=== PATIENT | male | born 1960 | race Caucasian/White ===

== ENCOUNTER 2018-07-16 04:54 | Inpatient (IN) | payer OTHER, SELFPAY ==
[2018-07-16] VITALS (40 sets, daily range): BP systolic 112–196; BP diastolic 48–117; PULSE 56–79; RESP 12–22; TEMP 36.4–36.9; O2SAT 96–100; BMI 33.1; BMI 32.5
--- NOTE | 2018-07-16 05:08 | EKG12_ITS ---
Test Reason : CP Blood Pressure : / mmHG Vent. Rate : 074 BPM Atrial Rate : 074 BPM P-R Int : 126 ms QRS Dur : 088 ms QT Int : 386 ms P-R-T Axes : 023 052 058 degrees QTc Int : 428 ms Normal sinus rhythm Normal ECG Confirmed by NATALYA URIOSTEGUI, MARIA T ([id number]), staff editor EJ NELSON ([id number]) on 07/20/2018 10:55:41 AM Referred By: Vasiliy Anton Confirmed By:MARIA T HOANG MD
--- NOTE | 2018-07-16 05:08 | RAD_ITS ---
STUDY: X-RAY CHEST REASON FOR EXAM: Male, 58 years old. Chest pain TECHNIQUE: 1 view COMPARISON: None. FINDINGS: The lungs are clear and expanded. There is no demonstrated pleural abnormality. Normal size heart. Normal mediastinum and vazquez. Normal visualized pulmonary arteries. Normal visualized aortic arch and descending thoracic aorta. Normal visualized thoracic spine. Normal visualized ribs, clavicles, and shoulders. There is no demonstrated abnormality of the visualized soft tissue structures of the upper abdomen. RAD/Chest 1 View (Portable) IMPRESSION: Normal x-ray examination of the chest. No acute findings in the lungs Electronically Signed: Parveen Escobar MD at 5:27 EDT Tel , Service support ,
[2018-07-16 05:17] LABS: Absolute Lymphocyte Count 3.09 X10^3/ul (0.83-4.51); Absolute Neutrophil Count 6.1 X10^3/uL (2.0-7.7); Basophil# 0.04 X10^3/uL; Basophil% 0.4 % (0-1); Hematocrit 43.8 % (40-54); Hemoglobin 15.3 g/dl (13.0-16.5); Lymphocyte # 3.09 X10^3/ul (4.0); Lymphocyte % 30.3 % (19-41); Mean Corp Hgb Conc 34.9 g/gl (32-36); Mean Corpuscular Hgb 30.5 pg (27.0-32.0); Mean Corpuscular Volume 87.3 fL (80-94); Mean Platelet Vol. 10.4 fl (6.2-12.0); Monocyte# 0.84 X10^3/uL; Monocyte% 8.2 % (0-10); Neutrophil # 6.12 X10^3/uL (2.7-7.7); Neutrophil % 59.9 % (47-70); Platelet Count 243 K/mm3 (150-450); RBC Distribution Width CV 14.3 % (11.6-14.6); RBC Distribution Width SD 45.1 fl (35.1-43.9); Red Blood Count 5.02 M/mm3 (4.6-6.2); White Blood Count 10.2 K/mm3 (4.4-11.0)
[2018-07-16 05:20] LABS: POSITIVE COUNT NO; POSITIVE DIFFERENTIAL NO; POSITIVE MORPHOLOGY NO
[2018-07-16] MEDS: 0.9% Normal Saline 1,000 ML 150 ML IV (05:27)
[2018-07-16] MEDS: Aspirin 81 MG TAB.CHEW 324 MG PO (05:27)
[2018-07-16 05:30] LABS: Anion Gap 8 (5-15); BUN 21 mg/dL (7-18); BUN/Creat Ratio 14.1 RATIO (10-20); Calcium,Total 9.5 mg/dL (8.5-10.1); Chloride 108 mmol/L (98-107); Creatinine, Serum 1.49 mg/dL (0.70-1.30); EST Glomerular Filtration Rate 51 mL/min (>60); Est Glom Filt Rate - Afr Amer 62 mL/min (>60); Estimated Creatinine Clearance 59.31 ml/min; Glucose 119 mg/dL (74-106); Potassium 3.9 mmol/L (3.5-5.1); Sodium Level 142 mmol/L (136-145)
--- NOTE | 2018-07-16 05:35 | ED.VISSUMM ---
- ER Visit Summary Date of Service: 07/16/18 Chief Complaint: [Chest pain] History of Present Illness: The patient is a 58 M [presents with chest discomfort that started yesterday. Patient was seen at [facility] and evaluated in the emergency department with EKG and blood work which were apparently unremarkable. Patient was told that he needs a stress test and was discharged to home. Patient states that pain came back this evening and while at work the pain seemed to get worse with activity and exertion. Patient describes a tightness diffusely about his chest that at times would radiate into his neck. Patient describes diaphoresis, nausea, and dyspnea. He denies any abdominal pain. He denies recent travel or surgery.] Physical Examination: HEENT-PERRLA, EOMI. Cranial nerves II through XII grossly intact. TMs clear. Mucous membranes moist. No adenopathy. Cardiovascular-regular rate and rhythm without murmur or ectopy Lungs-clear to auscultation, chest wall stable without crepitus or subcu emphysema Abdomen-normoactive bowel sounds, soft. Patient has epigastric tenderness on palpation as well as some mild right upper quadrant tenderness. There is no rebound, rigidity, or perineal signs. Extremities-intact ?4, normal range of motion, normal pulses, atraumatic [] Test Results: [EKG obtained arrival shows sinus rhythm with a ventricular rate of 74 bpm with no acute ST segment changes. CBC with differential was unremarkable. Chemistries unremarkable. BUN was 21 and creatinine 1.49. Troponin is less than 0.015. Chest x-ray was normal.] Emergency Department Course and Treatment: [Patient received aspirin and was given sublingual nitro which did seem to improve his pain. Patient will have an inch of Nitropaste placed to the anterior chest wall] Treatment Plan: [Admit for further work-up and evaluation of chest pain] Disposition: [Admit] Impression: [Chest pain-rule out acute coronary syndrome.] This note was generated with [employer] dictation software. It may contain incorrect words, spelling, and punctuation that were not noted in review of the chart prior to signing ED Disposition - Plan for ED Patient: Referrals: Narcisa Angelo DO [Primary Care Provider] -
[2018-07-16 06:01] LABS: AST(SGOT) 24 U/L (15-37); Alanine Aminotransfer ALT/SGPT 38 U/L (16-61); Albumin, Serum 3.9 g/dL (3.2-5.0); Alkaline Phosphatase 81 U/L (45-117); Bilirubin, Direct 0.11 mg/dL (0.00-0.30); Globulin 4.1 g/dL (2.2-4.2); Lipase 258 U/L (73-393)
[2018-07-16] MEDS: Nitroglycerin Oint 1 INCH PACKET TRANSDERM. (06:03)
--- NOTE | 2018-07-16 06:31 | PCM.HP.STD ---
Problem List (1) HTN (hypertension) Status: Chronic (2) Chest pain Status: Acute (3) Gout Status: Acute History of Present Illness Date of Admission: 07/16/18 Chief Complaint: Chest pain The patient is a 58 year old M with PMH as below who started having chest pain on the , and he tried to sleep it off and it continued overnight into the and therefore he went to [facility] and was evaluated in the ER. He states that an EKG and blood work there were unremarkable and he was told that he should follow-up as an outpatient with a stress test and was discharged home. He comes to [facility] because of a recurrence of his chest pain while at work. 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 States that the chest pain was around his whole chest occasionally going up to his neck he said that at times he felt nauseated and had some dyspnea, he is stating that his chest pain is much improved now with nitro then when he came in. He states that he had had a stress test many years ago which were normal, and he has a family history of PR in his brother and his father. Past Medical History Past Medical History (Chronic Problems): Chronic Problems HTN (hypertension) (Chronic) Allergies No Known Allergies Allergy (Verified 07/16/18 04:59) Home Medications: Ambulatory Orders Medication Instructions Recorded Allopurinol 100 mg PO DAILY 07/16/18 Amlodipine Besylate [Norvasc] 10 mg PO DAILY 07/16/18 Ferrous Sulfate 325 mg PO DAILY 07/16/18 Metoprolol Tartrate 25 mg PO BID 07/16/18 Valsartan [Diovan] 320 mg PO DAILY 07/16/18 Surgical History: no surgical history Smoking Status: Light Smoker (<10/day) Tobacco Use: Cigarettes Alcohol: None Drugs: None - *Family History Maternal History Items: Heart Disease Paternal History Items: Diabetes, Heart Disease Review of Systems Constitutional: Denies: Chills, Fever, Weight Change HEENT: Denies: Head Aches, Sinus Congestion, Sinus Drainage Cardiovascular: Reports: Chest Tightness. Denies: Chest Pain, Palpitations Respiratory: Denies: Cough, Shortness of breath at rest, Sputum production Gastrointestinal: Denies: Abdominal Pain, Nausea, Vomiting Genitourinary: Denies: Dysuria Musculoskeletal: Denies: Joint Pain, Joint Tenderness Skin: Denies: Rash, Wounds Neurological: Denies: Numbness, Tingling, Focal weakness Psychiatric: Denies: Anxiety, Depression Hematologic/ Lymphatic: Denies: Easy Bruising, Easy Bleeding VTE Information - Inpt Only VTE Present on Admission: No Patient Problems: Active and Suspected Problems Chest pain (Acute) Gout (Acute) - Physical Exam General: Alert, Oriented x3, Cooperative, No apparent distress HEENT: Atraumatic, PERRLA, EOMI, Normocephalic Oral: Moist Mucosa Neck: Supple, No JVD, Trachea Midline Lungs: Clear to auscultation, Normal air movement, No rhonchi, No wheeze, No rales Cardiovascular: Regular rate, Regular Rhythm, Normal S1, Normal S2, No murmurs Abdomen: Soft, Non Tender, Non-Distended, No Hepato-splenomegaly Extremities: No edema, Capillary Refill Less than 3 Seconds Skin: No rashes, No breakdown Neurological: Neuro grossly intact, Sensory exam intact to light touch and pain Psych/Mental Status: Normal Affect, Appropriate Vital Signs Temp Pulse Resp BP Pulse Ox 98.0 F 70 16 176/86 H 96 07/16/18 04:55 07/16/18 06:03 07/16/18 04:55 07/16/18 06:03 07/16/18 04:55 Oxygen Flow Rate (L/min) 2 Oxygen Delivery Method Nasal Cannula Weight: 239 lb 10.279 oz Body Mass Index (BMI) 32.5 Laboratory Tests Past 24 Hrs 07/16/18 07/16/18 07/16/18 05:00 05:00 05:00 WBC 10.2 RBC 5.02 Hgb 15.3 Hct 43.8 MCV 87.3 MCH 30.5 MCHC 34.9 RDW 14.3 RDW Differential 45.1 H Plt Count 243 MPV 10.4 Immature Gran % (Auto) 0.200 Neut % (Auto) 59.9 Lymph % (Auto) 30.3 [place] % (Auto) 8.2 Eos % (Auto) 1.0 Baso % (Auto) 0.4 Absolute Neuts (auto) 6.1 Absolute Lymphs (auto) 3.09 Total Counted Not Reportable Sodium 142 Potassium 3.9 Chloride 108 H Carbon Dioxide 26.0 Anion Gap 8 BUN 21 H Creatinine 1.49 H Estim Creat Clear Calc 59.31 Est GFR (MDRD) Af Amer 62 Est GFR (MDRD) Non-Af 51 L BUN/Creatinine Ratio 14.1 Glucose 119 H Calcium 9.5 Total Bilirubin 0.40 Direct Bilirubin 0.11 AST 24 ALT 38 Alkaline Phosphatase 81 Troponin I < 0.015 Total Protein 8.0 Albumin 3.9 Globulin 4.1 Lipase 258 Assessment/Plan All Active Problems Chest pain (Acute) Gout (Acute) 1. Chest pain/hypertension -Initial troponin is negative, will obtain serial enzymes -Does not feel like he would be able to exercise and therefore will obtain a nuclear stress -We will continue with his home medications and will need to make adjustments if he remains hypertensive -He did have improvement with nitro in the ER 2. Gout -Stable -Continue with his allopurinol 3. Renal insufficiency -Unsure of his creatinine at 1.49 is baseline or not, we do not have any previous records in our system to make a determination. DVT: Lovenox Code Visit OBSV E&M: 57336 Initial observation care L2
--- NOTE | 2018-07-16 06:35 | HP.PCM_ITS ---
Problem List (1) HTN (hypertension) Status: Chronic (2) Chest pain Status: Acute (3) Gout Status: Acute History of Present Illness Date of Admission: 07/16/18 Chief Complaint: Chest pain The patient is a 58 year old M with PMH as below who started having chest pain on the , and he tried to sleep it off and it continued overnight into the and therefore he went to [facility] and was evaluated in the ER. He states that an EKG and blood work there were unremarkable and he was told that he should follow-up as an outpatient with a stress test and was discharged home. He comes to [facility] because of a recurrence of his chest pain while at work. 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 States that the chest pain was around his whole chest occasionally going up to his neck he said that at times he felt nauseated and had some dyspnea, he is stating that his chest pain is much improved now with nitro then when he came in. He states that he had had a stress test many years ago which were normal, and he has a family history of AR in his brother and his father. Past Medical History Past Medical History (Chronic Problems): Chronic Problems HTN (hypertension) (Chronic) Allergies No Known Allergies Allergy (Verified 07/16/18 04:59) Home Medications: Ambulatory Orders Medication Instructions Recorded Allopurinol 100 mg PO DAILY 07/16/18 Amlodipine Besylate [Norvasc] 10 mg PO DAILY 07/16/18 Ferrous Sulfate 325 mg PO DAILY 07/16/18 Metoprolol Tartrate 25 mg PO BID 07/16/18 Valsartan [Diovan] 320 mg PO DAILY 07/16/18 Surgical History: no surgical history Smoking Status: Light Smoker (<10/day) Tobacco Use: Cigarettes Alcohol: None Drugs: None - *Family History Maternal History Items: Heart Disease Paternal History Items: Diabetes, Heart Disease Review of Systems Constitutional: Denies: Chills, Fever, Weight Change HEENT: Denies: Head Aches, Sinus Congestion, Sinus Drainage Cardiovascular: Reports: Chest Tightness. Denies: Chest Pain, Palpitations Respiratory: Denies: Cough, Shortness of breath at rest, Sputum production Gastrointestinal: Denies: Abdominal Pain, Nausea, Vomiting Genitourinary: Denies: Dysuria Musculoskeletal: Denies: Joint Pain, Joint Tenderness Skin: Denies: Rash, Wounds Neurological: Denies: Numbness, Tingling, Focal weakness Psychiatric: Denies: Anxiety, Depression Hematologic/ Lymphatic: Denies: Easy Bruising, Easy Bleeding VTE Information - Inpt Only VTE Present on Admission: No Patient Problems: Active and Suspected Problems Chest pain (Acute) Gout (Acute) - Physical Exam General: Alert, Oriented x3, Cooperative, No apparent distress HEENT: Atraumatic, PERRLA, EOMI, Normocephalic Oral: Moist Mucosa Neck: Supple, No JVD, Trachea Midline Lungs: Clear to auscultation, Normal air movement, No rhonchi, No wheeze, No rales Cardiovascular: Regular rate, Regular Rhythm, Normal S1, Normal S2, No murmurs Abdomen: Soft, Non Tender, Non-Distended, No Hepato-splenomegaly Extremities: No edema, Capillary Refill Less than 3 Seconds Skin: No rashes, No breakdown Neurological: Neuro grossly intact, Sensory exam intact to light touch and pain Psych/Mental Status: Normal Affect, Appropriate Vital Signs Temp Pulse Resp BP Pulse Ox 98.0 F 70 16 176/86 H 96 07/16/18 04:55 07/16/18 06:03 07/16/18 04:55 07/16/18 06:03 07/16/18 04:55 Oxygen Flow Rate (L/min) 2 Oxygen Delivery Method Nasal Cannula Weight: 239 lb 10.279 oz Body Mass Index (BMI) 32.5 Laboratory Tests Past 24 Hrs 07/16/18 07/16/18 07/16/18 05:00 05:00 05:00 WBC 10.2 RBC 5.02 Hgb 15.3 Hct 43.8 MCV 87.3 MCH 30.5 MCHC 34.9 RDW 14.3 RDW Differential 45.1 H Plt Count 243 MPV 10.4 Immature Gran % (Auto) 0.200 Neut % (Auto) 59.9 Lymph % (Auto) 30.3 [place] % (Auto) 8.2 Eos % (Auto) 1.0 Baso % (Auto) 0.4 Absolute Neuts (auto) 6.1 Absolute Lymphs (auto) 3.09 Total Counted Not Reportable Sodium 142 Potassium 3.9 Chloride 108 H Carbon Dioxide 26.0 Anion Gap 8 BUN 21 H Creatinine 1.49 H Estim Creat Clear Calc 59.31 Est GFR (MDRD) Af Amer 62 Est GFR (MDRD) Non-Af 51 L BUN/Creatinine Ratio 14.1 Glucose 119 H Calcium 9.5 Total Bilirubin 0.40 Direct Bilirubin 0.11 AST 24 ALT 38 Alkaline Phosphatase 81 Troponin I < 0.015 Total Protein 8.0 Albumin 3.9 Globulin 4.1 Lipase 258 Assessment/Plan All Active Problems Chest pain (Acute) Gout (Acute) 1. Chest pain/hypertension -Initial troponin is negative, will obtain serial enzymes -Does not feel like he would be able to exercise and therefore will obtain a nuclear stress -We will continue with his home medications and will need to make adjustments if he remains hypertensive -He did have improvement with nitro in the ER 2. Gout -Stable -Continue with his allopurinol 3. Renal insufficiency -Unsure of his creatinine at 1.49 is baseline or not, we do not have any previous records in our system to make a determination. DVT: Lovenox Code Visit OBSV E&M: 98156 Initial observation care L2
--- NOTE | 2018-07-16 06:46 | EKG12_ITS ---
Test Reason : CP ADMISSION Blood Pressure : / mmHG Vent. Rate : 064 BPM Atrial Rate : 064 BPM P-R Int : 132 ms QRS Dur : 092 ms QT Int : 416 ms P-R-T Axes : 018 048 049 degrees QTc Int : 429 ms Normal sinus rhythm Normal ECG Confirmed by NATALYA URIOSTEGUI, MARIA T ([id number]), tape editor EJ NELSON ([id number]) on 07/20/2018 12:28:06 PM Referred By: Vasiliy Anton Confirmed By:MARIA T HOANG MD
[2018-07-16 06:57] LABS: Prothrombin Time (Protime)PT. 12.8 SECONDS (11.7-14.9)
[2018-07-16 06:58] LABS: Partial Thromboplast Time 29.1 Seconds (24.1-36.2)
[2018-07-16 07:08] LABS: Cholesterol 219 mg/dL (200); High Density Lipoprotein 31 mg/dL; Triglycerides 275 mg/dL; Very Low Density Lipoprotein 55 mg/dL (5-40)
[2018-07-16] MEDS: Losartan Potassium 100 MG Tablet PO (07:53)
--- NOTE | 2018-07-16 08:04 | NURSING ---
Addendum entered by Fadumo Ray 07/16/18 08:17: BP 159/99, pt given cozaar before taken down to stress lab. Original Note: Nitropaste removed at 0745 for stress test. 0800 pt c/o of chest discomfort, rates a 3 on pain scale, VSS. Support given, pt states getting a little anxious abou test. Dr. Tinsley notified.
[2018-07-16] MEDS: Ferrous Sulfate 325 MG Tablet PO (09:43)
[2018-07-16] MEDS: Metoprolol Tartrate 25 MG Tablet PO ×2 (09:43→21:40)
[2018-07-16] MEDS: amLODIPine 10 MG Tablet PO (09:44)
[2018-07-16] MEDS: Enoxaparin 40 MG/0.4 ML Syringe SC (09:44)
[2018-07-16] MEDS: Allopurinol 100 MG Tablet PO (09:44)
[2018-07-16] MEDS: 0.9% NaCl Peripheral Flush Adult/Peds IV (09:47)
--- NOTE | 2018-07-16 10:00 | NURSING ---
0945 PT BACK FROM STRESS TEST, DENIES CP OR DISCOMFORT. BP 181/98, PT GIVEN HIS AM DOSE OF NORVASC AND LOPRESSOR.
--- NOTE | 2018-07-16 10:05 | STRESSREP ---
Stress Test Report Date: Procedure: Pharmacologic stress nuclear imaging study Indications: Chest pain Consent: Per the patient Procedure: The patient underwent pharmacologic (Regadenoson) evaluation with a peak heart rate of 86 beats per minute (53 %predicted maximal heart rate) and a peak blood pressure of 178/100 mmHg. The baseline ECG demonstrated normal sinus rhythm. The peak pharmacologic ECG demonstrated no obvious ECG changes. There were no cardiac dysrhythmias pretest, during pharmacologic infusion, or recovery. The patient noted waxing and waning chest discomfort/heaviness pretest, during infusion, and recovery. The examination was discontinued secondary to completion of protocol. Impression: 1. Pharmacologic (Regadenoson) evaluation 2. Peak pharmacologic ECG with no obvious ECG changes. 3. There were no cardiac dysrhythmias pretest, during pharmacologic infusion, or recovery. 4. Nuclear images pending Myocardial perfusion imaging study: Technique: The patient was injected with 14.5 millicuries of technetium 99m Cardiolite and subsequently rest SPECT Cardiolite nuclear imaging was obtained in the horizontal long, vertical long, and short axis views. The patient underwent pharmacologic (Regadenoson) evaluation with a peak heart rate of 86 beats per minute (53 % percent predicted maximal heart rate) and a peak blood pressure of 178/100 mmHg. The patient was injected with 44.3 millicuries of technetium 99m Cardiolite and subsequently stress SPECT Cardiolite nuclear imaging was obtained in the horizontal long, vertical long, and short axis views. A gated Cardiolite study at peak stress was obtained. Interpretation: Rest and stress SPECT Cardiolite nuclear imaging status post realignment, normalization, and attenuation correction demonstrate a small area of subtle diminished tracer uptake near the apical segments which appear to be somewhat more prominent following stress as opposed to rest. There are similar type findings on the resting and stress polar map images. There is end systolic thickening and brightening. The gated Cardiolite study demonstrates myocardial thickening and inward wall motion. The reported LVEF is 60 %. Impression: 1. Rest and stress SPECT currently nuclear imaging demonstrate myocardial perfusion changes in the apical area potentially compatible with physiologic apical thinning and/or shifting soft tissue attenuation/artifact, however, an area of stress-induced myocardial ischemia cannot necessarily be excluded. 2. The gated Cardiolite study reports an LVEF of 60 %. This note was generated with [employer] software. It may contain incorrect words, spelling, and punctuation that were not noted in checking the note before signing.
--- NOTE | 2018-07-16 10:09 | STRESSREP_ITS ---
Stress Test Report Date: Procedure: Pharmacologic stress nuclear imaging study Indications: Chest pain Consent: Per the patient Procedure: The patient underwent pharmacologic (Regadenoson) evaluation with a peak heart rate of 86 beats per minute (53 %predicted maximal heart rate) and a peak blood pressure of 178/100 mmHg. The baseline ECG demonstrated normal sinus rhythm. The peak pharmacologic ECG demonstrated no obvious ECG changes. There were no cardiac dysrhythmias pretest, during pharmacologic infusion, or recovery. The patient noted waxing and waning chest discomfort/heaviness pretest, during infusion, and recovery. The examination was discontinued secondary to completion of protocol. Impression: 1. Pharmacologic (Regadenoson) evaluation 2. Peak pharmacologic ECG with no obvious ECG changes. 3. There were no cardiac dysrhythmias pretest, during pharmacologic infusion, or recovery. 4. Nuclear images pending Myocardial perfusion imaging study: Technique: The patient was injected with 14.5 millicuries of technetium 99m Cardiolite and subsequently rest SPECT Cardiolite nuclear imaging was obtained in the horizo ntal long, vertical long, and short axis views. The patient underwent pharmacologic (Regadenoson) evaluation with a peak heart rate of 86 beats per minute (53 % percent predicted maximal heart rate) and a peak blood pressure of 178/100 mmHg. The patient was injected with 44.3 millicuries of technetium 99m Cardiolite and subsequently stress SPECT Cardiolite nuclear imaging was obtained in the horizontal long, vertical long, and short axis views. A gated Cardiolite study at peak stress was obtained. Interpretation: Rest and stress SPECT Cardiolite nuclear imaging status post realignment, norm alization, and attenuation correction demonstrate a small area of subtle diminished tracer uptake near the apical segments which appear to be somewhat more prominent following stress as opposed to rest. There are similar type findings on the resting and stress polar map images. There is end systolic thickening and brightening. The gated Cardiolite study demonstrates myocardial thickening and inward wall motion. The reported LVEF is 60 %. Impression: 1. Rest and stress SPECT currently nuclear imaging demonstrate myocardial perfusion changes in the apical area potentially compatible with physiologic apical thinning and/or shifting soft tissue attenuation/artifact, however, an area of stress-induced myocardial ischemia cannot necessarily be excluded. 2. The gated Cardiolite study reports an LVEF of 60 %. This note was generated with Dragon dictation software. It may contain incorrect words, spelling, and punctuation that were not noted in checking the note before signing.
--- NOTE | 2018-07-16 12:13 | CASEMGMT ---
According to the [facility] website, the following are in-network tertiary facilities: [facility], [place], [facility], [facility], and . Grant STEVENS CM
--- NOTE | 2018-07-16 13:03 | PCM.PROGNOTE ---
Patient Problems: Active and Suspected Problems Chest pain (Acute) Gout (Acute) Subjective: Patient seen and examined. Reports recurrence of chest pain this morning. Denies current chest pain. Denies other associated symptoms. Stress test abnormal. Cardiology consult placed. - Physical Exam General: Alert, Oriented x3, Cooperative HEENT: Atraumatic, PERRLA, EOMI, Normocephalic Neck: Supple, No JVD, Negative Carotid Bruits Lungs: Clear to auscultation, Normal air movement Cardiovascular: Regular rate, Regular Rhythm, Normal S1, Normal S2, No murmurs Abdomen: Bowel Sounds Present, Soft, Non Tender, Non-Distended, Obese Extremities: No clubbing, No cyanosis, No edema, Capillary Refill Less than 3 Seconds Skin: No rashes, No breakdown Musculoskeletal: No Tenderness to Palpation of Joints or Extremities Neurological: Cranial nerves II-XII grossly intact, Neuro grossly intact Psych/Mental Status: Normal Affect, Appropriate Vital Signs Temp Pulse Resp BP Pulse Ox 98 F 66 16 181/98 H 99 07/16/18 09:45 07/16/18 09:45 07/16/18 09:45 07/16/18 09:45 07/16/18 09:45 Oxygen Flow Rate (L/min) 2 Oxygen Delivery Method Nasal Cannula Weight: 239 lb 10.279 oz Body Mass Index (BMI) 32.5 Intake and Output for Last 24 Hours 07/14/18 07/15/18 07/16/18 23:59 23:59 23:59 Intake Total 120 / 120 Balance 120 / 120 Laboratory Tests Past 24 Hrs 07/16/18 07/16/18 07/16/18 05:00 05:00 05:00 WBC 10.2 RBC 5.02 Hgb 15.3 Hct 43.8 MCV 87.3 MCH 30.5 MCHC 34.9 RDW 14.3 RDW Differential 45.1 H Plt Count 243 MPV 10.4 Immature Gran % (Auto) 0.200 Neut % (Auto) 59.9 Lymph % (Auto) 30.3 Luna % (Auto) 8.2 Eos % (Auto) 1.0 Baso % (Auto) 0.4 Absolute Neuts (auto) 6.1 Absolute Lymphs (auto) 3.09 Total Counted Not Reportable PT INR APTT Sodium 142 Potassium 3.9 Chloride 108 H Carbon Dioxide 26.0 Anion Gap 8 BUN 21 H Creatinine 1.49 H Estim Creat Clear Calc 59.31 Est GFR (MDRD) Af Amer 62 Est GFR (MDRD) Non-Af 51 L BUN/Creatinine Ratio 14.1 Glucose 119 H Calcium 9.5 Total Bilirubin 0.40 Direct Bilirubin 0.11 AST 24 ALT 38 Alkaline Phosphatase 81 Troponin I < 0.015 Total Protein 8.0 Albumin 3.9 Globulin 4.1 Triglycerides Cholesterol LDL Cholesterol VLDL Cholesterol HDL Cholesterol Lipase 258 07/16/18 07/16/18 07/16/18 05:00 05:00 07:55 WBC RBC Hgb Hct MCV MCH MCHC RDW RDW Differential Plt Count MPV Immature Gran % (Auto) Neut % (Auto) Lymph % (Auto) Luna % (Auto) Eos % (Auto) Baso % (Auto) Absolute Neuts (auto) Absolute Lymphs (auto) Total Counted PT 12.8 INR 1.0 APTT 29.1 Sodium Potassium Chloride Carbon Dioxide Anion Gap BUN Creatinine Estim Creat Clear Calc Est GFR (MDRD) Af Amer Est GFR (MDRD) Non-Af BUN/Creatinine Ratio Glucose Calcium Total Bilirubin Direct Bilirubin AST ALT Alkaline Phosphatase Troponin I < 0.015 Total Protein Albumin Globulin Triglycerides 275 H Cholesterol 219 H LDL Cholesterol 133 H VLDL Cholesterol 55 H HDL Cholesterol 31 L Lipase 07/16/18 11:25 WBC RBC Hgb Hct MCV MCH MCHC RDW RDW Differential Plt Count MPV Immature Gran % (Auto) Neut % (Auto) Lymph % (Auto) Luna % (Auto) Eos % (Auto) Baso % (Auto) Absolute Neuts (auto) Absolute Lymphs (auto) Total Counted PT INR APTT Sodium Potassium Chloride Carbon Dioxide Anion Gap BUN Creatinine Estim Creat Clear Calc Est GFR (MDRD) Af Amer Est GFR (MDRD) Non-Af BUN/Creatinine Ratio Glucose Calcium Total Bilirubin Direct Bilirubin AST ALT Alkaline Phosphatase Troponin I < 0.015 Total Protein Albumin Globulin Triglycerides Cholesterol LDL Cholesterol VLDL Cholesterol HDL Cholesterol Lipase Medical Necessity - Tobacco Use Smoking Status: Light Smoker (<10/day) Tobacco Use: Cigarettes Assessment/Plan All Active Problems Chest pain (Acute) Gout (Acute) 1. Chest pain/abnormal stress test-troponin negative. EKG without ST-T changes. Patient underwent nuclear stress test which showed a possible area of stress-induced ischemia. Cardiology consulted. To undergo cardiac catheterization this afternoon. Aspirin, statin. 2. Hypertension-poorly controlled. Continue home amlodipine, metoprolol, valsartan regimen. As needed hydralazine for systolic blood pressure greater than 160. 3. Hyperlipidemia-not previously on a statin, added. 4. Gout-continue allopurinol regimen. 5. Elevated creatinine-unclear baseline. Possible component of chronic kidney disease? Trend BMP. DVT prophylaxis-Lovenox subcu This patient was seen by IVETTE Sofia under the supervision of Dr. Tinsley.
[2018-07-16] MEDS: 0.9% Normal Saline 1,000 ML 15 ML IV (13:30)
--- NOTE | 2018-07-16 13:31 | NURSING ---
pt going down for heart cath, questions answered.
--- NOTE | 2018-07-16 14:37 | NURSING ---
pt going to ICU after heart cath.
--- NOTE | 2018-07-16 15:13 | PCM.CONS.C ---
Problem List (1) Chest pain Status: Acute Qualifiers: Ischemic chest pain type: unstable angina pectoris Reason for Consult Date of Consultation: 07/16/18 Reason for Consultation: Chest pain, abnormal stress test History of Present Illness: The patient is a 58 year old M with PMH as below who started having chest pain on the , and he tried to sleep it off and it continued overnight into the and therefore he went to [facility] and was evaluated in the ER. He states that an EKG and blood work there were unremarkable and he was told that he should follow-up as an outpatient with a stress test and was discharged home. He comes to [facility] because of a recurrence of his chest pain while at work. 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 States that the chest pain was around his whole chest occasionally going up to his neck he said that at times he felt nauseated and had some dyspnea, he is stating that his chest pain is much improved now with nitro then when he came in. He states that he had had a stress test many years ago which were normal, and he has a family history of [place] in his brother and his father. He had a stress test which was suspicious for apical ischemia. Past Medical History Allergies/Adverse Reactions: Allergies No Known Allergies Allergy (Verified 07/16/18 04:59) Home Medications: Ambulatory Orders Medication Instructions Recorded Allopurinol 100 mg PO DAILY 07/16/18 Amlodipine Besylate [Norvasc] 10 mg PO DAILY 07/16/18 Ferrous Sulfate 325 mg PO DAILY 07/16/18 Metoprolol Tartrate 25 mg PO BID 07/16/18 Valsartan [Diovan] 320 mg PO DAILY 07/16/18 Past Medical History (Chronic Problems): Chronic Problems HTN (hypertension) (Chronic) Surgical History: no surgical history - *Family History Maternal History Items: Heart Disease Paternal History Items: Diabetes, Heart Disease Smoking Status: Light Smoker (<10/day) Tobacco Use: Cigarettes Alcohol: None Drugs: None Review of Systems - Review of Systems General: Denies: Fever, Weakness HEENT: Denies: Vision Change, Blurred Vision Cardiovascular: Reports: Chest Discomfort Respiratory: Denies: Cough, Hemoptysis Gastrointestinal: Denies: Indigestion, Jaundice Genitourinary: Denies: Dysuria Muscoloskeletal: Denies: Myalgias Skin: Denies: Rash Neurological: Denies: Tremors Psychiatric: Denies: Anxiety Objective: Vital Signs Temp Pulse Resp BP Pulse Ox 98 F 56 L 16 143/93 H 100 07/16/18 13:58 07/16/18 13:58 07/16/18 13:58 07/16/18 13:58 07/16/18 13:58 Oxygen Flow Rate (L/min) 2 Oxygen Delivery Method Room Air Weight: 239 lb 10.279 oz Body Mass Index (BMI) 32.5 Intake and Output for Last 24 Hours 07/14/18 07/15/18 07/16/18 23:59 23:59 23:59 Intake Total 120 / 120 Balance 120 / 120 General: Awake, Alert, Oriented x 3 HEENT: PERRL, EOMI, Sclera Non Icteric Neck: Supple, Good ROM, No Lymph Node Enlargement Lungs: Clear to auscultation Cardiovascular: Regular Rhythm, Normal S1, Normal S2, No Murmurs, No Rubs, No Gallops Vascular: No Carotid Bruits, Normal Femoral Pulses, Normal Radial Pulses, Normal Dorsalis Pedal Pulse, Normal Posterior Tibial Pulses Abdomen: Bowel Sounds Present, Soft, Non Tender, No HSM, No Organomegaly Extremities: No Cyanosis, No Clubbing, No edema Neurological: No Focal Motor or Sensory Deficit 07/16/18 05:00: WBC 10.2, RBC 5.02, Hgb 15.3, Hct 43.8, MCV 87.3, MCH 30.5, MCHC 34.9, RDW 14.3, RDW Differential 45.1 H, Plt Count 243, MPV 10.4, Immature Gran % (Auto) 0.200, Neut % (Auto) 59.9, Lymph % (Auto) 30.3, [place] % (Auto) 8.2, Eos % (Auto) 1.0, Baso % (Auto) 0.4, Absolute Neuts (auto) 6.1, Total Counted Not Reportable 07/16/18 05:00: Sodium 142, Potassium 3.9, Chloride 108 H, Carbon Dioxide 26.0, Anion Gap 8, BUN 21 H, Creatinine 1.49 H, Est GFR (MDRD) Af Amer 62, Est GFR (MDRD) Non-Af 51 L, BUN/Creatinine Ratio 14.1, Glucose 119 H, Calcium 9.5, Troponin I < 0.015 07/16/18 05:00: Total Bilirubin 0.40, Direct Bilirubin 0.11 07/16/18 05:00: Triglycerides 275 H, Cholesterol 219 H, LDL Cholesterol 133 H, VLDL Cholesterol 55 H, HDL Cholesterol 31 L 07/16/18 05:00: PT 12.8, INR 1.0, APTT 29.1 07/16/18 07:55: Troponin I < 0.015 07/16/18 11:25: Troponin I < 0.015 Rhythm: EKG: ECHO: Stress Test: Possible apical ischemia. Cardiac Cath: PCI: CT Surgery: Holter monitor: EPS: PPM: CXR: Chest CT Scan: Assessment/Plan 1. Chest pain: Chest pain is typical by history. Stress test suspicious for apical ischemia. Treatment options discussed with the patient in detail. Cardiac catheterization and its risks and benefits were also discussed. Patient understands risks and benefits and would like to proceed with cardiac catheterization. Rest of the management will be based on cardiac cath findings.
--- NOTE | 2018-07-16 15:15 | EKG12_ITS ---
Test Reason : AM EKG Blood Pressure : / mmHG Vent. Rate : 062 BPM Atrial Rate : 062 BPM P-R Int : 138 ms QRS Dur : 090 ms QT Int : 420 ms P-R-T Axes : 008 050 056 degrees QTc Int : 426 ms Normal sinus rhythm Normal ECG Confirmed by NATALYA URIOSTEGUI, MARIA T ([id number]), department editor EJ NELSON ([id number]) on 07/20/2018 12:35:37 PM Referred By: Vasiliy Anton Confirmed By:MARIA T HOANG MD
--- NOTE | 2018-07-16 15:18 | CON.PCM_ITS ---
Problem List (1) Chest pain Status: Acute Qualifiers: Ischemic chest pain type: unstable angina pectoris Reason for Consult Date of Consultation: 07/16/18 Reason for Consultation: Chest pain, abnormal stress test History of Present Illness: The patient is a 58 year old M with PMH as below who started having chest pain on the , and he tried to sleep it off and it continued overnight into the 04 27 and therefore he went to [facility] and was evaluated in the ER. He states that an EKG and blood work there were unremarkable and he was told that he should follow-up as an outpatient with a stress test and was discharged home. He comes to [facility] because of a recurrence of his chest pain while at work. 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 States that the chest pain was around his whole chest occasionally going up to his neck he said that at times he felt nauseated and had some dyspnea, he is stating that his chest pain is much improved now with nitro then when he came in. He states that he had had a stress test many years ago which were normal, and he has a family history of AR in his brother and his father. He had a stress test which was suspicious for apical ischemia. Past Medical History Allergies/Adverse Reactions: Allergies No Known Allergies Allergy (Verified 07/16/18 04:59) Home Medications: Ambulatory Orders Medication Instructions Recorded Allopurinol 100 mg PO DAILY 07/16/18 Amlodipine Besylate [Norvasc] 10 mg PO DAILY 07/16/18 Ferrous Sulfate 325 mg PO DAILY 07/16/18 Metoprolol Tartrate 25 mg PO BID 07/16/18 Valsartan [Diovan] 320 mg PO DAILY 07/16/18 Past Medical History (Chronic Problems): Chronic Problems HTN (hypertension) (Chronic) Surgical History: no surgical history - *Family History Maternal History Items: Heart Disease Paternal History Items: Diabetes, Heart Disease Smoking Status: Light Smoker (<10/day) Tobacco Use: Cigarettes Alcohol: None Drugs: None Review of Systems - Review of Systems General: Denies: Fever, Weakness HEENT: Denies: Vision Change, Blurred Vision Cardiovascular: Reports: Chest Discomfort Respiratory: Denies: Cough, Hemoptysis Gastrointestinal: Denies: Indigestion, Jaundice Genitourinary: Denies: Dysuria Muscoloskeletal: Denies: Myalgias Skin: Denies: Rash Neurological: Denies: Tremors Psychiatric: Denies: Anxiety Objective: Vital Signs Temp Pulse Resp BP Pulse Ox 98 F 56 L 16 143/93 H 100 07/16/18 13:58 07/16/18 13:58 07/16/18 13:58 07/16/18 13:58 07/16/18 13:58 Oxygen Flow Rate (L/min) 2 Oxygen Delivery Method Room Air Weight: 239 lb 10.279 oz Body Mass Index (BMI) 32.5 Intake and Output for Last 24 Hours 07/14/18 07/15/18 07/16/18 23:59 23:59 23:59 Intake Total 120 / 120 Balance 120 / 120 General: Awake, Alert, Oriented x 3 HEENT: PERRL, EOMI, Sclera Non Icteric Neck: Supple, Good ROM, No Lymph Node Enlargement Lungs: Clear to auscultation Cardiovascular: Regular Rhythm, Normal S1, Normal S2, No Murmurs, No Rubs, No Gallops Vascular: No Carotid Bruits, Normal Femoral Pulses, Normal Radial Pulses, Normal Dorsalis Pedal Pulse, Normal Posterior Tibial Pulses Abdomen: Bowel Sounds Present, Soft, Non Tender, No HSM, No Organomegaly Extremities: No Cyanosis, No Clubbing, No edema Neurological: No Focal Motor or Sensory Deficit 07/16/18 05:00: WBC 10.2, RBC 5.02, Hgb 15.3, Hct 43.8, MCV 87.3, MCH 30.5, MCHC 34.9, RDW 14.3, RDW Differential 45.1 H, Plt Count 243, MPV 10.4, Immature Gran % (Auto) 0.200, Neut % (Auto) 59.9, Lymph % (Auto) 30.3, [place] % (Auto) 8.2, Eos % (Auto) 1.0, Baso % (Auto) 0.4, Absolute Neuts (auto) 6.1, Total Counted Not Reportable 07/16/18 05:00: Sodium 142, Potassium 3.9, Chloride 108 H, Carbon Dioxide 26.0, Anion Gap 8, BUN 21 H, Creatinine 1.49 H, Est GFR (MDRD) Af Amer 62, Est GFR (MDRD) Non-Af 51 L, BUN/Creatinine Ratio 14.1, Glucose 119 H, Calcium 9.5, Troponin I < 0.015 07/16/18 05:00: Total Bilirubin 0.40, Direct Bilirubin 0.11 07/16/18 05:00: Triglycerides 275 H, Cholesterol 219 H, LDL Cholesterol 133 H, VLDL Cholesterol 55 H, HDL Cholesterol 31 L 07/16/18 05:00: PT 12.8, INR 1.0, APTT 29.1 07/16/18 07:55: Troponin I < 0.015 07/16/18 11:25: Troponin I < 0.015 Rhythm: EKG: ECHO: Stress Test: Possible apical ischemia. Cardiac Cath: PCI: CT Surgery: Holter monitor: EPS: PPM: CXR: Chest CT Scan: Assessment/Plan 1. Chest pain: Chest pain is typical by history. Stress test suspicious for apical ischemia. Treatment options discussed with the patient in detail. Cardiac catheterization and its risks and benefits were also discussed. Patient understands risks and benefits and would like to proceed with cardiac catheterization. Rest of the management will be based on cardiac cath findings.
[2018-07-16] MEDS: hydrALAZINE 20 MG/ML Vial 10 MG IV (15:33)
[2018-07-16] MEDS: hydrALAZINE 20 MG/ML Vial 5 MG IV (16:56)
[2018-07-16] MEDS: Aspirin E.C. 81 MG Tablet PO (17:00)
[2018-07-16] MEDS: Atorvastatin Calcium 40 MG Tablet PO (21:40)
[2018-07-16] MEDS: TICAGRELOR 90 MG TABLET PO (21:40)
[2018-07-17] VITALS (12 sets, daily range): BP systolic 117–187; BP diastolic 49–103; PULSE 55–90; RESP 12–17; TEMP 36.8–36.9; O2SAT 97–100; BMI 32.4
[2018-07-17 05:36] LABS: Anion Gap 5 (5-15); BUN 14 mg/dL (7-18); BUN/Creat Ratio 13.1 RATIO (10-20); Calcium,Total 9.1 mg/dL (8.5-10.1); Chloride 110 mmol/L (98-107); Creatinine, Serum 1.07 mg/dL (0.70-1.30); EST Glomerular Filtration Rate 75 mL/min (>60); Est Glom Filt Rate - Afr Amer 91 mL/min (>60); Glucose 98 mg/dL (74-106); Sodium Level 140 mmol/L (136-145)
[2018-07-17] MEDS: Aspirin E.C. 81 MG Tablet PO (08:05)
[2018-07-17] MEDS: Ferrous Sulfate 325 MG Tablet PO (08:05)
[2018-07-17] MEDS: TICAGRELOR 90 MG TABLET PO (08:06)
[2018-07-17] MEDS: Losartan Potassium 100 MG Tablet PO (08:06)
[2018-07-17] MEDS: Metoprolol Tartrate 25 MG Tablet PO (08:06)
[2018-07-17] MEDS: Enoxaparin 40 MG/0.4 ML Syringe SC (08:07)
[2018-07-17] MEDS: Allopurinol 100 MG Tablet PO (08:07)
[2018-07-17] MEDS: amLODIPine 10 MG Tablet PO (08:07)
--- NOTE | 2018-07-17 08:11 | CRPHASE1 ---
Patient Communication PHII Cardiac Rehab Discussed with Patient:: Yes Guide to Cardiac Rehab Given to Patient:: Yes Cardiac Rehab Facility Choice List Given to Patient:: Yes - PT STATES THAT IF HE ATTENDS A CR PROGRAM, IT WOULD PROBABLY BE IN [facility] Other:: Communication Given to CR, With permission faxed order and referral information - PT STATES WOULD PROBABLY ATTEND IN [place], IF HE DECIDES TO ATTEND Senior Producer:: Kellie Stover PCP:: Narcisa Angelo Refer Phase II Cardiac Rehab:: Yes Sessions:: 36 sessions - 3 days/wk, 12 weeks Risk Factors/Lifestyle Smoking Status: Current every day smoker Hx Hypertension: Yes Hx Diabetes Mellitus Type 1: No Hx Diabetes Mellitus Type 2: No Hx Dyslipidemia: Yes Hx Obesity: Yes Height: 6 ft Weight:: 239 lb BMI: 32.4 ETOH: No Substance Abuse: No Risk Factor for Sedentary Lifestyle: Moderate Risk - PT HAS ACTIVE JOB Family History: Heart Disease Laboratory Values: Cardiac Rehab Phase I Labs Triglycerides 275 mg/dL (-199) H 07/16/18 05:00 Cholesterol 219 mg/dL (200) H 07/16/18 05:00 LDL Cholesterol 133 mg/dL (0-130) H 07/16/18 05:00 HDL Cholesterol 31 mg/dL (40-) L 07/16/18 05:00 Phase I Education Given On:: [place], Nutrition, Antiplatelet medication, CHF, Smoking cessation, Diabetes - Type I, Diabetes - Type II Issues Affecting Care:: None Knowledge of Condition:: No Hospital Course Pain Description: Tightness, Pressure Medical/Surgical History CAD:: Yes Valve Disease/Replacement:: No Pulmonary:: No COPD:: No - DENIES Asthma:: No Diabetes:: No Hypertension:: Yes Dyslipidemia:: Yes Arrhythmias:: No PE:: No DVT:: No Arthritis:: No - DENIES GERD:: No Cancer:: No Renal:: Yes - PT STATES FIRST STAGE? Thyroid:: No Depression:: No Anxiety:: No CABG: No PTCA:: Yes - PCI Discharge/Home/Social Eval Discharge Disposition: Home Marital Status: Single - PT STATES HIS DAUGHTER AND GRANDCHILD LIVE WITH HIM Cardiac Rehabilitation Info Cardiac Rehabilitation Program Information: Cardiac Rehabilitation is important for patients like you who are recovering from a heart problem. Cardiac rehabilitation programs are recognized as integral to the continued care of the patient with coronary heart disease. The cardiac rehabilitation program is designed to optimize a patient's physical, psychological, and social functioning. Health after school caregiver work in cardiac rehabilitation programs and assist you with getting the treatments you need to get stronger and healthier - like exercise, healthy eating habits, and medications. Cardiac rehabilitation has been show to help people with heart problems live longer and have better life enjoyment than people who do not go to cardiac rehabilitation. Please contact the Cardiac Rehabilitation Program at [facility] at in two weeks if you have not heard from them.
--- NOTE | 2018-07-17 08:15 | CRPHASE1_ITS ---
Patient Communication PHII Cardiac Rehab Discussed with Patient:: Yes Guide to Cardiac Rehab Given to Patient:: Yes Cardiac Rehab Facility Choice List Given to Patient:: Yes - PT STATES THAT IF HE ATTENDS A CR PROGRAM, IT WOULD PROBABLY BE IN [facility] Program Other:: Communication Given to CR, With permission faxed order and referral information - PT STATES WOULD PROBABLY ATTEND IN [place], IF HE DECIDES TO ATTEND Parking Officer:: Kellie Stover PCP:: Narcisa Angelo Refer Phase II Cardiac Rehab:: Yes Sessions:: 36 sessions - 3 days/wk, 12 weeks Risk Factors/Lifestyle Smoking Status: Current every day smoker Hx Hypertension: Yes Hx Diabetes Mellitus Type 1: No Hx Diabetes Mellitus Type 2: No Hx Dyslipidemia: Yes Hx Obesity: Yes Height: 6 ft Weight:: 239 lb BMI: 32.4 ETOH: No Substance Abuse: No Risk Factor for Sedentary Lifestyle: Moderate Risk - PT HAS ACTIVE JOB Family History: Heart Disease Laboratory Values: Cardiac Rehab Phase I Labs Triglycerides 275 mg/dL (-199) H 07/16/18 05:00 Cholesterol 219 mg/dL (200) H 07/16/18 05:00 LDL Cholesterol 133 mg/dL (0-130) H 07/16/18 05:00 HDL Cholesterol 31 mg/dL (40-) L 07/16/18 05:00 Phase I Education Given On:: [place], Nutrition, Antiplatelet medication, CHF, Smoking cessation, Diabetes - Type I, Diabetes - Type II Issues Affecting Care:: None Knowledge of Condition:: No Hospital Course Pain Description: Tightness, Pressure Medical/Surgical History CAD:: Yes Valve Disease/Replacement:: No Pulmonary:: No COPD:: No - DENIES Asthma:: No Diabetes:: No Hypertension:: Yes Dyslipidemia:: Yes Arrhythmias:: No PE:: No DVT:: No Arthritis:: No - DENIES GERD:: No Cancer:: No Renal:: Yes - PT STATES FIRST STAGE? Thyroid:: No Depression:: No Anxiety:: No CABG: No PTCA:: Yes - PCI Discharge/Home/Social Eval Discharge Disposition: Home Marital Status: Single - PT STATES HIS DAUGHTER AND GRANDCHILD LIVE WITH HIM Cardiac Rehabilitation Info Cardiac Rehabilitation Program Information: Cardiac Rehabilitation is important for patients like you who are recovering from a heart problem. Cardiac rehabilitation programs are recognized as integral to the continued care of the patient with coronary heart disease. The cardiac rehabilitation program is designed to optimize a patient's physical, psychological, and social functioning. Health transitional care liaison work in cardiac rehabilitation programs and assist you with getting the treatments you need to get stronger and healthier - like exercise, healthy eating habits, and medications. Cardiac rehabilitation has been show to help people with heart problems live longer and have better life enjoyment than people who do not go to cardiac rehabilitation. Please contact the Cardiac Rehabilitation Program at [facility] at in two weeks if you have not heard from them.
--- NOTE | 2018-07-17 08:39 | CRPH1.INSTRU ---
General Education CAD and cardiac anatomy and function:: Not instructed Explanation of diagnoses and procedures:: Not instructed Sign/Symptoms of AR:: Not instructed Antiplatelet therapy: Family communicates acknowledgment, Needs reinforcement Proper use of NTG-SL: Not instructed Emergency procedures and activation of EMS: Not instructed Compliance of all prescribed medications: Family communicates acknowledgment Smoking Patient Nicotine/Smoking Risk Factors Are:: Cigarettes Nicotine/Smoking Response Code:: Not instructed Dyslipidemia Patient Dyslipidemia Risk Factors Are:: Total Cholesterol - 219, Triglycerides - 275, HDL - 31, LDL - 133 Recommendations Include:: Lipid profile provided Dyslipidemia Response Code:: Not instructed Overweight/Obesity Patient Overweight/Obesity Risk Factors Are:: Obesity - > or = 30 Overweight/Obesity:: Not instructed Hypertension Hypertension:: Not instructed Heart Disease Patient Heart Disease Risk Factors Are:: Family history of heart disease < 65 years old Recommendations Include:: Educated family members of their risk - ENCOURAGED THAT HIS CHILDREN LET THEIR PMD KNOW OF FAMILY HX, Educated family members of importance of prevention of heart disease Heart Disease Response Code:: Needs reinforcement Diabetes Patient Diabetes Risk Factors Are:: No documented hx of diabetes Diabetes:: Not instructed Metabolic Syndrome Patient Metabolic Syndrome Risk Factors Are [3 of 5]:: Waist circumference > 35 [female] or 40 [male], High triglyceride >150, Hypertension, Low HDL <40 [male] or < 50 [female] Metabolic Syndrome Response Code:: Not instructed Sedentary Sedentary Response Code:: Not instructed Stress Stress Response Code:: Not instructed
--- NOTE | 2018-07-17 09:36 | CASEMGMT ---
RN CM Assessment Presentation: Recurrent chest pain, heart cath. Intro role of CM and purpose of RN CM assessment. Demographics, PCP and Pharmacy verified. PCP: Dr. Angelo Specialists: Dr. Stover Preferred Pharmacy: [facility] Insurance: [employer] Prescription Benefit: yes, anticipate home on [place]. Savings card given and explained to pt. LNOK: Friend Bryn Massey listed as contact Living Arrangements: Lives independently, no care needs identified. Transportation: pt drives DME: none HHC: none Patient DC goals: Home DC PLAN: home on discharge. Sherri GOMEZN RN ACM
--- NOTE | 2018-07-17 10:41 | PCM.DC ---
- Discharge Diagnoses Current Active Problems: Current Active and Chronic Problems CAD HTN (hypertension) (Chronic) Chest pain (Acute) Gout (Acute) You will use the following diet at home:: Cardiac Discharge Activity: Return to Normal Activity Call your doctor if you observe: Shortness of breath, Dizziness, Fainting spells, Chest pain Allergies/Adverse Reactions: Allergies No Known Allergies Allergy (Verified 07/16/18 04:59) Medications to take at Discharge Allopurinol 100 mg PO DAILY 07/16/18 Amlodipine Besylate [Norvasc] 10 mg PO DAILY 07/16/18 Ferrous Sulfate 325 mg PO DAILY 07/16/18 Metoprolol Tartrate 25 mg PO BID 07/16/18 Valsartan [Diovan] 320 mg PO DAILY 07/16/18 Aspirin E.C. [Ecotrin] 81 mg PO DAILY@0800 #30 tablet 07/17/18 Atorvastatin Calcium [Lipitor] 40 mg PO QHS #30 tablet 07/17/18 Ticagrelor [Brilinta] 90 mg PO BID #60 tablet 07/17/18 The following prescriptions were given: Aspirin E.C. [Ecotrin] 81 mg PO DAILY@0800 #30 tablet Atorvastatin Calcium [Lipitor] 40 mg PO QHS #30 tablet Ticagrelor [Brilinta] 90 mg PO BID #60 tablet Primary Care Physician: Narcisa Angelo DO [Primary Care Provider] - Please follow up with your Primary Care Physician in: 1 Week Test Results: Test results from this visit will be discussed in further detail at your follow-up appointment, if applicable. Please Follow Up With: Kellie Stover MD - Cardiology When: 2 Weeks Proposed Discharge Date: 07/17/18
--- NOTE | 2018-07-17 10:45 | DCINST_ITS ---
- Discharge Diagnoses Current Active Problems: Current Active and Chronic Problems CAD HTN (hypertension) (Chronic) Chest pain (Acute) Gout (Acute) You will use the following diet at home:: Cardiac Discharge Activity: Return to Normal Activity Call your doctor if you observe: Shortness of breath, Dizziness, Fainting spells, Chest pain Allergies/Adverse Reactions: Allergies No Known Allergies Allergy (Verified 07/16/18 04:59) Medications to take at Discharge Allopurinol 100 mg PO DAILY 07/16/18 Amlodipine Besylate [Norvasc] 10 mg PO DAILY 07/16/18 Ferrous Sulfate 325 mg PO DAILY 07/16/18 Metoprolol Tartrate 25 mg PO BID 07/16/18 Valsartan [Diovan] 320 mg PO DAILY 07/16/18 Aspirin E.C. [Ecotrin] 81 mg PO DAILY@0800 #30 tablet 07/17/18 Atorvastatin Calcium [Lipitor] 40 mg PO QHS #30 tablet 07/17/18 Ticagrelor [Brilinta] 90 mg PO BID #60 tablet 07/17/18 The following prescriptions were given: Aspirin E.C. [Ecotrin] 81 mg PO DAILY@0800 #30 tablet Atorvastatin Calcium [Lipitor] 40 mg PO QHS #30 tablet Ticagrelor [Brilinta] 90 mg PO BID #60 tablet Primary Care Physician: Narcisa Angelo DO [Primary Care Provider] - Please follow up with your Primary Care Physician in: 1 Week Test Results: Test results from this visit will be discussed in further detail at your follow- up appointment, if applicable. Please Follow Up With: Kellie Stover MD - Cardiology When: 2 Weeks Proposed Discharge Date: 07/17/18
--- NOTE | 2018-07-17 10:49 | PCM.WORK.EX ---
Work/School Excuse Work/School Excuse for:: Patient Please excuse this person from:: Work From: 07/16/18 through: 07/19/18
--- NOTE | 2018-07-17 10:50 | PCM.DC.SUM ---
Discharge Date and Diagnosis Date of Admission: 07/16/18 Date of Discharge: 07/17/18 - Primary Discharge Diagnosis Active and Suspected Problems 1. CAD status post PTCA to right PDA 2. Hypertension 3. Hyperlipidemia 4. Gout 5. Suspected acute kidney injury - Secondary Discharge Diagnosis Chronic Problems HTN (hypertension) (Chronic) Hospital Course and Treatment Imaging Results: Diagnostic Data Chest X-Ray 07/16/18 05:08 IMPRESSION: Normal x-ray examination of the chest. No acute findings in the lungs Electronically Signed: Parveen Escobar MD at 5:27 EDT Tel , Service support , Dr. Stover- Cardiology Operations: None Procedures: Cardiac catheterization - with stent to right PDA, Stress test Summary of Care Provided: The patient is a 58 year old M admitted 07/16/2018 due to chest pain. 1. Chest pain secondary to CAD status post stent to right PDA-troponin negative. EKG without ST-T changes. Patient underwent nuclear stress test which showed a possible area of stress-induced ischemia. Cardiology consulted. Patient underwent cardiac catheterization 07/16/2018 with stent to right PDA. Continue aspirin, Brilinta, statin at discharge. Follow-up with cardiology in 2 weeks. Follow-up with primary care physician in 1 week. 2. Hypertension-Continue home amlodipine, metoprolol, valsartan regimen. 3. Hyperlipidemia-continue statin. 4. Gout-continue allopurinol regimen. 5. Suspected acute kidney injury-unclear baseline however creatinine improved to 1.07 from 1.49 with IV fluids. General: Alert, Oriented x3, Cooperative HEENT: Atraumatic, PERRLA, EOMI, Normocephalic Neck: Supple, No JVD, Negative Carotid Bruits Lungs: Clear to auscultation, Normal air movement Cardiovascular: Regular rate, Regular Rhythm, Normal S1, Normal S2, No murmurs Abdomen: Bowel Sounds Present, Soft, Non Tender, Non-Distended, Obese Extremities: No clubbing, No cyanosis, No edema, Capillary Refill Less than 3 Seconds Skin: No rashes, No breakdown, right wrist cath site intact Musculoskeletal: No Tenderness to Palpation of Joints or Extremities Neurological: Cranial nerves II-XII grossly intact, Neuro grossly intact Psych/Mental Status: Normal Affect, Appropriate Patient seen and examined prior to discharge. Physical assessment as noted above. Patient is stable for discharge with follow up recommendations as noted above. This patient was seen by IVETTE Sofia under the supervision of Dr. Tinsley. - Physical Exam Vital Signs Temp Pulse Resp BP Pulse Ox 98.3 F 58 L 17 166/96 H 98 07/17/18 04:00 07/17/18 10:00 07/17/18 10:00 07/17/18 10:00 07/17/18 10:00 Oxygen Flow Rate (L/min) 2 Oxygen Delivery Method Room Air Weight: 239 lb Body Mass Index (BMI) 32.5 Intake and Output for Last 24 Hours 07/15/18 07/16/18 07/17/18 23:59 23:59 23:59 Intake Total 960 / 960 240 / 240 Output Total 700 / 700 Balance 260 / 260 240 / 240 Laboratory Tests Past 24 Hrs 07/16/18 07/17/18 11:25 05:05 Sodium 140 Potassium 4.0 Chloride 110 H Carbon Dioxide 25.0 Anion Gap 5 BUN 14 Creatinine 1.07 Estim Creat Clear Calc 82.60 Est GFR (MDRD) Af Amer 91 Est GFR (MDRD) Non-Af 75 BUN/Creatinine Ratio 13.1 Glucose 98 Calcium 9.1 Troponin I < 0.015 Discharge Diet: Low fat/ Low Cholesterol Discharge Activity: Return to Normal Activity Call your doctor if you observe: Shortness of breath, Dizziness, Fainting spells, Chest pain Home Medications: Medications to take at Discharge Allopurinol 100 mg PO DAILY 07/16/18 Amlodipine Besylate [Norvasc] 10 mg PO DAILY 07/16/18 Ferrous Sulfate 325 mg PO DAILY 07/16/18 Metoprolol Tartrate 25 mg PO BID 07/16/18 Valsartan [Diovan] 320 mg PO DAILY 07/16/18 Aspirin E.C. [Ecotrin] 81 mg PO DAILY@0800 #30 tablet 07/17/18 Atorvastatin Calcium [Lipitor] 40 mg PO QHS #30 tablet 07/17/18 Ticagrelor [Brilinta] 90 mg PO BID #60 tablet 07/17/18 Following Prescrptions Were Given to Patient: Aspirin E.C. [Ecotrin] 81 mg PO DAILY@0800 #30 tablet Atorvastatin Calcium [Lipitor] 40 mg PO QHS #30 tablet Ticagrelor [Brilinta] 90 mg PO BID #60 tablet Primary Care Physician: Narcisa Angelo DO [Primary Care Provider] - Please follow up with your Primary Care Physician in: 1 Week Please Follow Up With: Kellie Stover MD - Cardiology When: 2 Weeks Disposition: Home Minutes spent on discharge:: 35 Patient Condition:: Stable Medical Necessity - Tobacco Use Smoking Status: Current every day smoker Tobacco Use: Cigarettes Meaningful Use Info Meaningful Use Diagnoses (Choose all that apply): None applicable
--- NOTE | 2018-07-17 15:15 | EKG12_ITS ---
Test Reason : POST STENT Blood Pressure : / mmHG Vent. Rate : 058 BPM Atrial Rate : 058 BPM P-R Int : 132 ms QRS Dur : 092 ms QT Int : 430 ms P-R-T Axes : 023 057 065 degrees QTc Int : 422 ms Sinus bradycardia Confirmed by NATALYA URIOSTEGUI, MARIA T ([id number]), assignment desk editor EJ NELSON ([id number]) on 07/20/2018 12:35:52 PM Referred By: Vasiliy Anton Confirmed By:MARIA T HOANG MD
--- NOTE | 2018-08-26 14:55 | CL.I_ITS ---
Patient Name: VIVIEN HIGUERA V Study Date: 07/16/2018 Performing: Ade Stover MD Ht: 72.05 inches 183 cm : 1960 Wt: 240.3 lbs 109 kg Age: 58 Gender: male BSA: 2.3 PROCEDURE(S) PERFORMED [id number]/COR [id number] W OR WO PTCA, SINGLE CORONARY ARTERY CLINICAL PROFILE AND CO-MORBIDITIES Indications: New Onset Angina <= 2 months Heart Failure: None Stress/Imaging Stress Test w/SPECT MPI: Yes Result: Positive Intermediate Risk Stress Test with S PECT MPI: Positive Intermediate Risk CAD Presentations: Unstable angina. CONCLUSIONS CAD as described Successful PTCA/LENORE of proximal RPDA with a 2.5 x 12mm Synergy LENORE RECOMMENDATIONS Highly recommend quitting all tobacco products Risk factor modification ASA Indefinitley Brilinta for at least 12 months DESCRIPTION OF PROCEDURE The patient arrived to the procedure lab. The risks and benefits of the procedure as well as a full d escription of our services here and lack of surgical backup were fully explained to the patient and/o r their significant other prior to the catheterization. The Timeout was completed, verifying the sandra ect patient and procedure. The patient's procedural site was prepped and draped in the usual fashion. Local anesthetic was given subcutaneously to right radial region with Lidocaine 2%. Using a modified Seldinger technique, arterial access was obtained via the right radial artery, a 6Fr sheath was inse rted.. Left Coronary Artery selective angiography was performed in multiple views using a 5 Fr. JL3. 5 catheter. Right Coronary Artery selective angiography was then performed in multiple views using a 5 Fr. JR 4 catheterThe images were reviewed and options discussed. A decision was then made to procee d with an Intervention, IVUS or other adjunct procedure. Arterial sheath was exchanged for a 6 Fr 70 cm Sheath. bmw Guide wire was advanced to the RCA. jr 4 medtronic Guide catheter was inserted and engaged into the RCA. emerge 2.5 x 12 Balloon catheter was advanced across lesion in the posterior descending, proximal. PTCA balloon inflated at 8 atms for 14 secs. synergy 2.50 x12 Drug Eluting stent was advanced across the lesion in the posterior descend ing, proximal. Angiogram performed post stent deployment. The arterial sheath was pulled and a TR B and was applied for hemostasis CORONARY ANGIOGRAPHY DOMINANCE: Right Dominant LEFT HEART ASSESSMENT Left Ventricular Ejection Fraction: Not assessed LEFT MAIN: Mild luminal irregularities LEFT ANTERIOR DECENDING ARTERY: Non-obstructive, mild diffuse disease CIRCUMFLEX ARTERY: Mild luminal irregularities RIGHT CORONARY ARTERY: MID RCA: 40-50 % Stenosis RT PDA: Proximal - 80 % Stenosis INTERVENTION INFORMATION LESION SITE: RT PDA (Proximal) Lesion Complexity: High/C, chronic total occlusion: No, lesion at bifurcation: No, thrombus present: No, culprit lesion: Yes, Previously treated lesion: No, In-stent restenosis: No Pre Stenosis: 80 % Pre intervention MARKOS flow: 3 PROCEDURE: Drug Eluting Stent with pre dilatation. Post Stenosis: 0 % Post intervention MARKOS flow: 3 Lesion Devices: Galo Sci EMERGE MR 2.50x12 BALLOON Galo Sci Synergy MR LENORE 2.50x12 COMPLICATIONS No Complications PROCEDURE MEDICATIONS Fentanyl 50 mcg IV Versed 1 mg IV Oxygen: 2 L/min via nasal cannula Brilinta 180 mg PO @ 07/16/2018 14:44:48 Heparin 3000 unit(s) IA 07/16/2018 14:01:30 Heparin 5000 unit(s) IV 07/16/2018 14:15:07 Nitro 200 mcg IC 07/16/2018 14:02:18 Nitro 200 mcg IC 07/16/2018 14:02:18 Verapamil 2.5 mg IA 07/16/2018 14:01:58 SUMMARY OF HEMODYNAMIC DATA Time AIR REST ECG 13:48:33 AO 116/74 (91) SA 14:02:47 RM AIR REST 08:36:45 Signed By Ade Stover MD On 07/23/2018 11:36:57 AM Ade Stover MD
--- NOTE | 2018-08-26 14:55 | CL.D_ITS ---
Patient Name: VIVIEN HIGUERA V Study Date: 07/16/2018 Performing: Ade Stover MD Ht: 72.04 inches 183 cm : 1960 Wt: 240.3 lbs 109 kg Age: 58 Gender: male BSA: 2.3 PROCEDURE(S) PERFORMED [id number]/COR [id number] W OR WO PTCA, SINGLE CORONARY ARTERY CLINICAL PROFILE AND INDICATIONS Indications: New Onset Angina <= 2 months Heart Failure: None Stress/Imaging Stress Test w/SPECT MPI: Yes Result: Positive Intermediate RiskStress Test with SP ECT MPI: Positive Intermediate Risk CAD Presentations: Unstable angina. CONCLUSIONS RECOMMENDATIONS DESCRIPTION OF PROCEDURE The patient arrived to the procedure lab. The risks and benefits of the procedure as well as a full d escription of our services here and current unavailability of surgical backup were fully explained to the patient and/or their significant other prior to the catheterization. The Timeout was completed, verifying the correct patient and procedure. The patient's procedural site was prepped and draped in the usual fashion. Local anesthetic was given subcutaneously to right radial region with Lidocaine 2% . Using a modified Seldinger technique, arterial access was obtained via the right radial artery, a 6 Fr sheath was inserted. Left Coronary Artery selective angiography was performed in multiple views u sing a 5 Fr. JL3.5 catheter. Right Coronary Artery selective angiography was then performed in multip le views using a 5 Fr. JR 4 catheter.The arterial sheath was pulled and a TR Band was applied for hem ostasis CORONARY ANGIOGRAPHY DOMINANCE: Right Dominant LEFT HEART ASSESSMENT Left Ventricular Ejection Fraction: Not assessed LEFT MAIN: Mild luminal irregularities LEFT ANTERIOR DECENDING ARTERY: Non-obstructive, mild diffuse disease CIRCUMFLEX ARTERY: Mild luminal irregularities RIGHT CORONARY ARTERY: MID RCA: 40-50 % Stenosis RT PDA: Proximal - 80 % Stenosis COMPLICATIONS No Complications PROCEDURE MEDICATIONS Fentanyl 50 mcg IV Versed 1 mg IV Oxygen: 2 L/min via nasal cannula Brilinta 180 mg PO @ 07/16/2018 14:44:48 Heparin 3000 unit(s) IA 07/16/2018 14:01:30 Heparin 5000 unit(s) IV 07/16/2018 14:15:07 Nitro 200 mcg IC 07/16/2018 14:02:18 Nitro 200 mcg IC 07/16/2018 14:02:18 Verapamil 2.5 mg IA 07/16/2018 14:01:58 SUMMARY OF HEMODYNAMIC DATA Time AIR REST ECG 13:48:33 AO 116/74 (91) SA 14:02:47 14:50:16 Signed By Ade Stover MD On 07/16/2018 3:28:42 PM Ade Stover MD
== END 2018-07-17 10:55 | disposition home or self-care (01) | DRG 247 ==
LOC: ED 05:16 → PCU 05:54 → ICU 07-17 07:45 → PCU 07-17 08:47
PROVIDERS: Nurse Practitioner Family; Admitting Provider Family Medicine; Emergency Provider Emergency Medicine; Referring Provider Family Medicine; Visit Provider Internal Medicine
DX: I25.119 Atherosclerotic heart disease of native coronary artery with unspecified angina pectoris (principal); N17.9 Acute kidney failure, unspecified; M10.9 Gout, unspecified; E78.5 Hyperlipidemia, unspecified; I10 Essential (primary) hypertension; F17.210 Nicotine dependence, cigarettes, uncomplicated
CPT/HCPCS: 36415; 71045; 78452; 80048; 80061; 80076; 83690; 84484; 85025; 85610; 85730; 92928; 93005; 93017; 93454; 97802; 99152; 99153; 99285; 99406; A9500; J7030; Q9967; A4216; C1725; C1769; C1887; C1894; C9600; J1327; J2785

== ENCOUNTER 2018-09-16 03:42 | Observation (INO) | payer OTHER, SELFPAY ==
[2018-07-17 08:39] VITALS: BMI 32.4
[2018-08-04 14:39] VITALS: BMI 32.6
--- NOTE | 2018-09-16 03:45 | EKG12_ITS ---
Test Reason : REPEAT Blood Pressure : / mmHG Vent. Rate : 063 BPM Atrial Rate : 063 BPM P-R Int : 146 ms QRS Dur : 090 ms QT Int : 412 ms P-R-T Axes : 046 050 056 degrees QTc Int : 421 ms Normal sinus rhythm Normal ECG Confirmed by EZEQUIEL URIOSTEGUI, PATIENCE ([id number]), publication editor LEYDI LOPEZ ([id number] on 09/22/2018 11:38:37 AM Referred By: Ana Germain Confirmed By:ALPA NIEVES MD
--- NOTE | 2018-09-16 04:30 | RAD_ITS ---
STUDY: X-RAY CHEST REASON FOR EXAM: Male, 58 years old. Pain TECHNIQUE: PA and lateral views of the chest. COMPARISON: 07/16/2018 FINDINGS: There are superimposed monitor leads. The lungs are clear and expanded. There is no demonstrated pleural abnormality. Normal size heart. Normal mediastinum and vazquez. Normal visualized pulmonary arteries. Normal visualized aortic arch and descending thoracic aorta. There are diffuse degenerative changes of the visualized thoracic spine. Normal visualized ribs, clavicles, and shoulders. There is no demonstrated abnormality of the visualized soft tissue structures of the upper abdomen. RAD/Chest PA and Lateral IMPRESSION: No acute cardiopulmonary disease. No significant interval change. Electronically Signed: Marion Smallwood MD at 4:45 EDT , Service support ,
[2018-09-16 04:58] LABS: AST(SGOT) 21 U/L (15-37); Alanine Aminotransfer ALT/SGPT 40 U/L (16-61); Albumin, Serum 4.1 g/dL (3.2-5.0); Alkaline Phosphatase 90 U/L (45-117); Anion Gap 11 (5-15); BUN 18 mg/dL (7-18); Calcium,Total 9.3 mg/dL (8.5-10.1); Chloride 107 mmol/L (98-107); Creatinine, Serum 1.29 mg/dL (0.70-1.30); EST Glomerular Filtration Rate 61 mL/min (>60); Est Glom Filt Rate - Afr Amer 74 mL/min (>60); Globulin 4.2 g/dL (2.2-4.2); Glucose 119 mg/dL (74-106); Potassium 3.6 mmol/L (3.5-5.1); Protein, Total 8.3 g/dL (6.4-8.2); Sodium Level 143 mmol/L (136-145)
[2018-09-16 05:01] LABS: Absolute Neutrophil Count 8.5 X10^3/uL (2.0-7.7); Basophil# 0.02 X10^3/uL; Basophil% 0.2 % (0-1); Eosinophil# 0.12 X10^3/uL; Hematocrit 46.7 % (40-54); Hemoglobin 16.2 g/dl (13.0-16.5); Lymphocyte % 21.9 % (19-41); Mean Corp Hgb Conc 34.7 g/gl (32-36); Mean Corpuscular Volume 89.5 fL (80-94); Mean Platelet Vol. 10.4 fl (6.2-12.0); Monocyte# 1.01 X10^3/uL; Monocyte% 8.2 % (0-10); Neutrophil # 8.45 X10^3/uL (2.7-7.7); Neutrophil % 68.5 % (47-70); Platelet Count 238 K/mm3 (150-450); RBC Distribution Width CV 13.8 % (11.6-14.6); RBC Distribution Width SD 45.1 fl (35.1-43.9); Red Blood Count 5.22 M/mm3 (4.6-6.2); White Blood Count 12.3 K/mm3 (4.4-11.0)
[2018-09-16 05:02] LABS: POSITIVE COUNT NO; POSITIVE DIFFERENTIAL NO; POSITIVE MORPHOLOGY NO
--- NOTE | 2018-09-16 05:35 | ED.VISSUMM ---
- ER Visit Summary Date of Service: 09/16/18 Chief Complaint: Chest pain History of Present Illness: The patient is a 58 M who presents for chest pain. Pain is located substernally and does not radiate into the arms, neck, back or abdomen. Is currently a heaviness and a 7 out of 10 in intensity. No alleviating or exacerbating factors. Patient has associated shortness of breath and states he became diaphoretic at onset. Patient for the last 2 days is felt weak, short of breath and in general has not felt well. He took off work because of how he fell. He has a history of a stent. Also history of hypertension and hypercholesterolemia. He is on aspirin and Brilinta but has been out of brilinta for several days. Patient does smoke. 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 Physical Examination: Vital signs: afebrile, hemodynamically stable, no hypoxia on room air General: well nourished, well developed, in no distress Skin: warm, dry, no rash, no pallor, skin covered in sweat HEENT: normocephalic and atraumatic; PERRL, EOMI, moist mucous membranes Cardiovascular: regular rate and rhythm without murmurs, no peripheral edema, 2+ pulses all distal extremities Respiratory: No increased work of breathing, lungs are clear to auscultation bilaterally, no rales, rhonchi or wheezing Abdominal: Abdomen is soft, nontender with normoactive bowel sounds, no guarding or rebound, no masses MSK: Moves all extremities, no deformities, normal strength Neuro: Awake and alert, oriented ?4. No facial droop, sensation and motor function intact and symmetric Test Results: Abnormal Lab Results 09/16/18 09/16/18 09/16/18 03:45 03:45 05:50 WBC 12.3 H RBC 5.22 Hgb 16.2 Hct 46.7 MCV 89.5 MCH 31.0 MCHC 34.7 RDW 13.8 RDW Differential 45.1 H Plt Count 238 MPV 10.4 Immature Gran % (Auto) 0.200 Neut % (Auto) 68.5 Lymph % (Auto) 21.9 Eaton % (Auto) 8.2 Eos % (Auto) 1.0 Baso % (Auto) 0.2 Absolute Neuts (auto) 8.5 H Absolute Lymphs (auto) 2.70 Total Counted Not Reportable VBG Carboxyhemoglobin 5.9 H Sodium 143 Potassium 3.6 Chloride 107 Carbon Dioxide 25.0 Anion Gap 11 BUN 18 Creatinine 1.29 Est GFR (MDRD) Af Amer 74 Est GFR (MDRD) Non-Af 61 BUN/Creatinine Ratio 14.0 Glucose 119 H Calcium 9.3 Total Bilirubin 0.40 AST 21 ALT 40 Alkaline Phosphatase 90 Troponin I < 0.015 Total Protein 8.3 H Albumin 4.1 Globulin 4.2 Albumin/Globulin Ratio 1.0 Clinical Impression(s) from Imaging Studies Chest X-Ray 09/16/18 04:30 IMPRESSION: No acute cardiopulmonary disease. No significant interval change. Electronically Signed: Marion Smallwood MD at 4:45 EDT , Service support , Emergency Department Course and Treatment: Patient was given aspirin and nitroglycerin with improvement in his chest pain. EKG showed a sinus rhythm with no ischemic changes. CBC remarkable for leukocytosis of 12.3. CMP unremarkable. Initial troponin negative. 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 Chest x-ray showed no acute process. Patient had improvement after the nitro, however after period of time, his chest pain returned. A repeat EKG showed no changes. Patient was given additional nitro with improvement in his pain. Because of his significant cardiac history and is concerning chest pain today, he was admitted for further chest pain work-up. Treatment Plan: [] Disposition: [] Impression: Acute chest pain, history of coronary artery disease This note was generated with [employer] software. It may contain incorrect words, spelling, and punctuation that were not noted in review of the chart prior to signing ED Disposition - Plan for ED Patient:
--- NOTE | 2018-09-16 05:55 | EKG12_ITS ---
Test Reason : CP Blood Pressure : / mmHG Vent. Rate : 073 BPM Atrial Rate : 073 BPM P-R Int : 134 ms QRS Dur : 096 ms QT Int : 396 ms P-R-T Axes : 032 045 059 degrees QTc Int : 436 ms Normal sinus rhythm Normal ECG Confirmed by EZEQUIEL URIOSTEGUI, PATIENCE ([id number]), production editor LEYDI LOPEZ ([id number]) on 09/22/2018 11:38:58 AM Referred By: Ana Germain Confirmed By:ALPA NIEVES MD
[2018-09-16 06:14] LABS: Carboxyhemoglobin Frac (CO) 5.9 % (0.0-1.5)
[2018-09-16 08:25] VITALS: BP 164/96; PULSE 61; RESP 16; TEMP 36.6; O2SAT 97
[2018-09-16 08:33] VITALS: BMI 32.3
[2018-09-16 08:55] VITALS: PULSE 60
[2018-09-16] MEDS: TICAGRELOR 90 MG TABLET 180 MG PO (09:03)
[2018-09-16 09:40] VITALS: PULSE 60; RESP 16; O2SAT 2
--- NOTE | 2018-09-16 12:56 | STRESSREP ---
Stress Test Report Date: 09/16/2018 Procedure: Pharmacologic stress nuclear imaging study Indications: Chest pain Consent: Per the patient Procedure: The patient underwent pharmacologic (Regadenoson) evaluation with a peak heart rate of 88 beats per minute (54 %predicted maximal heart rate) and a peak blood pressure of 162/100 mmHg. The baseline ECG demonstrated normal sinus rhythm. EKG during lexiscan infusion revealed no significant ST-T changes. EKG post infusion revealed no significant ischemic changes. [There were no cardiac dysrhythmias pretest, during pharmacologic infusion, or recovery]. [There was no complaint of chest discomfort during pharmacologic infusion or recovery]. The examination was discontinued secondary to completion of protocol. Impression: 1. Lexiscan stress test test is negative for Lexiscan infusion induced EKG changes of ischemia. 2. Lexiscan stress test test is negative for Lexiscan infusion induced chest pain. 3. Results of the nuclear portion of the test is as below Myocardial perfusion imaging study: Technique: The patient was injected with 15 millicuries of technetium 99m Cardiolite and subsequently rest SPECT Cardiolite nuclear imaging was obtained in the horizontal long, vertical long, and short axis views. The patient underwent pharmacologic (Regadenoson) evaluation. Please see above for details. The patient was injected with 44.5 millicuries of technetium 99m Cardiolite and subsequently stress SPECT Cardiolite nuclear imaging was obtained in the horizontal long, vertical long, and short axis views. A gated Cardiolite study at peak stress was obtained. Interpretation: Rest and stress SPECT Cardiolite nuclear imaging status post realignment, normalization, and attenuation correction demonstrate normal myocardial radioisotope uptake on the rest and stress images. Gated images reveal no significant regional wall motion abnormalities. The reported LVEF is 59 %. Impression: 1. There is no evidence of significant ischemia or infarction. 2. Estimated ejection fraction is 59%. This note was generated with [employer] software. It may contain incorrect words, spelling, and punctuation that were not noted in checking the note before signing.
[2018-09-16 13:00] VITALS: BP 172/98; PULSE 63; RESP 16; TEMP 36.6; O2SAT 100
--- NOTE | 2018-09-16 14:10 | DCINST_ITS ---
You will use the following diet at home:: No restrictions Your food should be the consistency of: Regular Your liquids should be the consistency of: Regular/Thin Discharge Activity: Return to Normal Activity Return to work on:: 09/21/18 Weight Bearing Status: Full weight bearing Additional Instructions: RESUME BRILINTA TONITE Allergies/Adverse Reactions: Allergies No Known Allergies Allergy (Verified 08/04/18 14:41) Medications to take at Discharge Allopurinol 100 mg PO DAILY 07/16/18 Amlodipine Besylate [Norvasc] 10 mg PO DAILY 07/16/18 Ferrous Sulfate 325 mg PO DAILY 07/16/18 Valsartan [Diovan] 320 mg PO DAILY 07/16/18 Aspirin E.C. [Ecotrin] 81 mg PO DAILY@0800 #30 tab 07/17/18 Atorvastatin Calcium [Lipitor] 40 mg PO QHS #30 tab 09/16/18 Metoprolol Tartrate 25 mg PO BID #60 tab 09/16/18 Ticagrelor [Brilinta] 90 mg PO BID #60 tab 09/16/18 The following prescriptions were given: Ticagrelor [Brilinta] 90 mg PO BID #60 tab Transmission Status: Pending to [id number] Atorvastatin Calcium [Lipitor] 40 mg PO QHS #30 tab Transmission Status: Pending to [id number] Metoprolol Tartrate 25 mg PO BID #60 tab Transmission Status: Pending to [id number] Primary Care Physician: Narcisa Angelo, [Primary Care Provider] - Please follow up with your Primary Care Physician in: in 2 weeks Test Results: Test results from this visit will be discussed in further detail at your follow- up appointment, if applicable. Please Follow Up With: Kellie Stover MD When: as directed
--- NOTE | 2018-09-17 07:20 | PCM.HP.STD ---
Problem List (1) Chest pain Status: Acute Qualifiers: Chest pain type: precordial pain Qualified Code(s): R07.2 - Precordial pain History of Present Illness Date of Admission: 09/16/18 Chief Complaint: Chest pain The date of this history and physical is 09/16/2018: The patient is a 58 year old M who was seen in the emergency room at [facility] with a chief complaint of precordial chest pain which she described as pressure-like in nature, this discomfort did not radiate into his neck or down his arm, it was not accompanied by shortness of breath or diaphoresis. Patient stated that the episode started approximately 2 AM this morning while he was at work on 09/16/2018. Patient had a recent history of stent placement in June 2018. Patient admits that he ran out of his Brilinta approximately 2 weeks ago but he states he was taking the rest of his medications including aspirin. Work-up in the emergency room included an EKG which showed a normal sinus rhythm without evidence of ischemic changes, patient's labs were unremarkable, patient's chest x-ray was unremarkable. I contacted cardiology (Dr. Garay) and discussed the case with him, they confirmed that I could repeat the patient's troponin later on this morning and if it was negative patient could undergo a nuclear stress test to evaluate his coronary arteries. I also discussed the case with Dr. Loo and Dr. Stover. Patient will be placed in observation status on PCU, his enzymes will be cycled, he will undergo a resting pharmacological nuclear stress test today if his enzymes remain negative. Past Medical History Past Medical History (Chronic Problems): Chronic Problems (Last Reviewed 08/04/18 @ 15:46 by Kellie Stover MD) Essential (primary) hypertension (Chronic) HLD (hyperlipidemia) (Chronic) Coronary artery disease (Chronic) HTN (hypertension) (Chronic) Medical History: Medical History (Last Reviewed 08/04/18 @ 15:46 by Kellie Stover MD) Essential (primary) hypertension (Chronic) I10 HLD (hyperlipidemia) (Chronic) E78.5 Coronary artery disease (Chronic) I25.10 Allergies No Known Allergies Allergy (Verified 08/04/18 14:41) Home Medications: Ambulatory Orders Medication Instructions Recorded Allopurinol 100 mg PO DAILY 07/16/18 Amlodipine Besylate [Norvasc] 10 mg PO DAILY 07/16/18 Ferrous Sulfate 325 mg PO DAILY 07/16/18 Valsartan [Diovan] 320 mg PO DAILY 07/16/18 Aspirin E.C. [Ecotrin] 81 mg PO DAILY@0800 #30 tab 07/17/18 Atorvastatin Calcium [Lipitor] 40 mg PO QHS #30 tab 09/16/18 Metoprolol Tartrate 25 mg PO BID #60 tab 09/16/18 Ticagrelor [Brilinta] 90 mg PO BID #60 tab 09/16/18 Surgical History: Surgical History (Last Reviewed 08/04/18 @ 15:46 by Kellie Stover MD) History of PTCA (Inactive) Z98.61 PTCA/LENORE of proximal RPDA with a 2.5 x 12 mm Synergy LENORE at [facility] 07/16/2018 Surgical History: - - Insertion of coronary artery stent June 2018 Psychiatric History: No pertinent psych hx Lives: Alone Smoking Status: Current every day smoker Tobacco Use: Cigarettes Alcohol: None Drugs: None - *Family History Maternal Family History: Family History (Last Reviewed 08/04/18 @ 15:46 by Kellie Stover MD) Father Heart disease Brother Heart disease History Items: Heart Disease Paternal Family History: Family History (Last Reviewed 08/04/18 @ 15:46 by Kellie Stover MD) Father Heart disease Brother Heart disease History Items: Diabetes, Heart Disease Review of Systems Constitutional: Denies: Anorexia, Chills, Fever, Night Sweats, Malaise, Weakness, Weight Change Eyes: Denies: Cataracts, Conjunctivae Inflammation, Double vision, Drainage HEENT: Denies: Difficulty Swallowing, Dysphasia, Ear Pain, Eye Pain, Hearing Changes, Nasal bleeding, Nasal Congestion, Post Nasal Drip Cardiovascular: Reports: Chest Pain, Chest Pressure, Heaviness. Denies: Claudication, Chest Tightness, Edema, Orthopnea, Palpitations, Paroxysmal Noc. Dyspnea, Syncope Respiratory: Denies: Cough, Hemoptysis, Shortness of breath at rest, Shortness of breath upon exertion Gastrointestinal: Denies: Abdominal Pain, Constipation, Diarrhea, Hematemesis, Hematochezia, Nausea, Melena, Vomiting Genitourinary: Denies: Dysuria, Frequency, Hematuria, Hesitancy, Nocturia, Retention, Urgency Musculoskeletal: Denies: Back Pain, Foot Pain, Joint Pain, Joint stiffness, Joint swelling, Joint Tenderness, Leg Pain Skin: Denies: Dryness, Pruritis, Rash Neurological: Denies: Blurred vision, Double vision, Slurred speech, Difficulty swallowing, Focal weakness, Numbness, Tingling Psychiatric: Denies: Anxiety, Depression, Homicidal Ideations, Suicidal Ideations Endocrine: Denies: Change in Body Habitus, Heat/ Cold Intolerance, Polydipsia, Polyuria Hematologic/ Lymphatic: Denies: Adenopathy, Anemia, Easy Bruising, Easy Bleeding, Petechiae, Purpura VTE Information - Inpt Only VTE Present on Admission: No VTE Mechan Device Prophylaxis: None VTE Pharm Prophylaxis ordered?: No Reason prophylaxis not ordered:: Treatment Not Indicated - Physical Exam General: Alert, Oriented x3, Cooperative HEENT: Atraumatic, PERRLA, EOMI, Normocephalic Oral: Moist Mucosa Neck: Supple, No JVD, Negative Carotid Bruits, No Nuchal Rigidity, Trachea Midline, Thyroid Normal Size and Texture Lungs: Clear to auscultation, Normal air movement, No rhonchi, No wheeze, No rales Cardiovascular: Regular rate, Regular Rhythm, Normal S1, Normal S2, No murmurs, PMI Normal, No rub noted, No Gallop Abdomen: Bowel Sounds Present, Soft, Non Tender, Non-Distended, No hernias noted Extremities: No clubbing, No cyanosis, No edema, Capillary Refill Less than 3 Seconds Skin: No rashes, No breakdown Musculoskeletal: No Tenderness to Palpation of Joints or Extremities Neurological: Cranial nerves II-XII grossly intact, Neuro grossly intact, Sensory exam intact to light touch and pain, Coordination normal Psych/Mental Status: Normal Affect, Appropriate, Alert and oriented to time, place, person, mood and affect Vital Signs Temp Pulse Resp BP Pulse Ox 97.8 F 63 16 172/98 H 100 09/16/18 13:00 09/16/18 13:00 09/16/18 13:00 09/16/18 13:00 09/16/18 13:00 Oxygen Flow Rate (L/min) 2 Oxygen Delivery Method Nasal Cannula Weight: 108.1 kg Body Mass Index (BMI) 32.3 Intake and Output for Last 24 Hours 09/15/18 09/16/18 09/17/18 23:59 23:59 23:59 Intake Total 240 / 240 Balance 240 / 240 Laboratory Tests Past 24 Hrs 09/16/18 08:50 Troponin I < 0.015 Assessment/Plan All Active Problems (Last Reviewed 08/04/18 @ 15:46 by Kellie Stover MD) Chest pain (Acute) Gout (Resolved) #1 precordial chest pressure in a patient with known coronary artery disease-patient will be placed in observation status on PCU, his cardiac enzymes will be repeated in a few hours, if these enzymes are negative he will undergo a resting pharmacological nuclear stress test today to rule out reversible ischemia. #2 noncompliance with medical regimen-patient smokes and has run out of his Brilinta recently #3 coronary artery disease #4 essential hypertension #5 hyperlipidemia Code Visit OBSV E&M: 14438 Initial observation care L3
--- NOTE | 2018-09-17 07:29 | DS.PCM_ITS ---
Discharge Date and Diagnosis Date of Admission: 09/16/18 Date of Discharge: 09/16/18 - Primary Discharge Diagnosis #1 musculoskeletal chest pain #2 coronary artery disease #3 noncompliance with medical regimen #4 hyperlipidemia #5 essential hypertension - Secondary Discharge Diagnosis Chronic Problems (Last Reviewed 08/04/18 @ 15:46 by Kellie Stover MD) Essential (primary) hypertension (Chronic) HLD (hyperlipidemia) (Chronic) Coronary artery disease (Chronic) HTN (hypertension) (Chronic) Hospital Course and Treatment Operations: None Procedures: Nuclear stress test Summary of Care Provided: The patient is a 58 year old M was seen in the emergency room [facility] with a chief complaint of precordial chest pain which he described as pressure-like in nature. Patient has a past history of coronary artery disease with a stent placement in June 2018. Patient's work-up in the emergency room included an EKG which showed a normal sinus rhythm without evidence of ischemic changes, chest x-ray was unremarkable, patient's lab was unremarkable. Patient was placed in observation status on PCU, repeat cardiac enzymes were unremarkable, patient underwent a pharmacological nuclear stress test that was negative for reversible ischemia. On 09/16/2018, patient was seen and examined: On examination he appeared in good health and spirits. Vital signs as documented. Skin warm and dry and without overt rashes. Neck without JVD. Lungs clear. Heart exam notable for regular rhythm, normal sounds and absence of murmurs, rubs or gallops. Abdomen unremarkable and without evidence of organomegaly, masses, or abdominal aortic enlargement. Extremities nonedematous. Neuro: Cranial nerves II through XII are grossly intact, no focal motor deficits were noted, sensation to light touch and pinprick intact. Psych: Patient is alert and oriented x3, he does not appear anxious or depressed On 09/16/2018, patient was seen and examined and felt to be in stable condition for discharge home. - Physical Exam Vital Signs Temp Pulse Resp BP Pulse Ox 97.8 F 63 16 172/98 H 100 09/16/18 13:00 09/16/18 13:00 09/16/18 13:00 09/16/18 13:00 09/16/18 13:00 Oxygen Flow Rate (L/min) 2 Oxygen Delivery Method Nasal Cannula Weight: 108.1 kg Body Mass Index (BMI) 32.3 Intake and Output for Last 24 Hours 09/15/18 09/16/18 09/17/18 23:59 23:59 23:59 Intake Total 240 / 240 Balance 240 / 240 Laboratory Tests Past 24 Hrs 09/16/18 08:50 Troponin I < 0.015 Discharge Activity: Return to Normal Activity Return to work on:: 09/21/18 Weight Bearing Status: Full weight bearing Home Medications: Medications to take at Discharge Allopurinol 100 mg PO DAILY 07/16/18 Amlodipine Besylate [Norvasc] 10 mg PO DAILY 07/16/18 Ferrous Sulfate 325 mg PO DAILY 07/16/18 Valsartan [Diovan] 320 mg PO DAILY 07/16/18 Aspirin E.C. [Ecotrin] 81 mg PO DAILY@0800 #30 tab 07/17/18 Atorvastatin Calcium [Lipitor] 40 mg PO QHS #30 tab 09/16/18 Metoprolol Tartrate 25 mg PO BID #60 tab 09/16/18 Ticagrelor [Brilinta] 90 mg PO BID #60 tab 09/16/18 Following Prescrptions Were Given to Patient: Ticagrelor [Brilinta] 90 mg PO BID #60 tab Transmission Status: Received by [id number] Atorvastatin Calcium [Lipitor] 40 mg PO QHS #30 tab Transmission Status: Received by [id number] Metoprolol Tartrate 25 mg PO BID #60 tab Transmission Status: Received by [id number] Primary Care Physician: Narcisa Angelo DO [Primary Care Provider] - Please follow up with your Primary Care Physician in: in 2 weeks Please Follow Up With: Kellie Stover MD When: as directed Disposition: Home Minutes spent on discharge:: 30 Patient Condition:: Stable Medical Necessity - Tobacco Use Smoking Status: Current every day smoker Tobacco Use: Cigarettes Meaningful Use Info Meaningful Use Diagnoses (Choose all that apply): None applicable Code Visit OBSV E&M: 52175 Observ/hosp same date L3
== END 2018-09-16 14:11 | disposition home or self-care (01) ==
LOC: ED 04:54 → PCU 07:50
PROVIDERS: Admitting Provider Family Medicine; Emergency Provider Emergency Medicine; Referring Provider Family Medicine; Visit Provider Internal Medicine
DX: R07.89 Other chest pain (principal); R06.02 Shortness of breath; I25.10 Atherosclerotic heart disease of native coronary artery without angina pectoris; E78.5 Hyperlipidemia, unspecified; F17.210 Nicotine dependence, cigarettes, uncomplicated; I10 Essential (primary) hypertension; Z79.899 Other long term (current) drug therapy; Z79.82 Long term (current) use of aspirin; Z79.01 Long term (current) use of anticoagulants; Z91.14 Patient's other noncompliance with medication regimen
CPT/HCPCS: 36415; 71046; 78452; 80053; 82375; 84484; 85025; 93005; 93017; 94760; 96361; 99218; 99285; A9500; J7030; A4216; G0378; J2785